=== PATIENT | female | born 1945 | race Caucasian/White ===

== ENCOUNTER 2021-02-01 09:52 | Inpatient (IN) ==
[2021-02-01] MEDS ORDERED: Ondansetron 4 MG/2 ML VIAL IVP ONE (09:57)
[2021-02-01] MEDS ORDERED: Ipratropium/Albuterol Neb 3 ML IH ONE (09:57)
[2021-02-01] MEDS ORDERED: Acetaminophen 325 MG TABLET PO ONE (09:57)
[2021-02-01] MEDS ORDERED: 0.9 % Sodium Chloride 1,000 ML ONE (10:02)
[2021-02-01] MEDS ORDERED: 0.9 % Sodium Chloride 1,000 ML IVC ONE (10:04)
[2021-02-01] MEDS ORDERED: Acetaminophen 650 MG RECTAL SUPP RC ONE (10:14)
[2021-02-01 10:18] LABS: ABG Base Excess -2 mEq/L (-2 to 3); ABG Chloride 122 mEq/L (98-107); ABG Glucose 146 mg/dL (60-95); ABG HCO3 23 mEq/L (21-27); ABG Ionized Calcium 1.13 mmol/L (1.15-1.35); ABG Oxygen Saturation 95 % (95-98); ABG PCO2 42 mmHg (35-45); ABG PH 7.35 pH Units (7.32-7.45); ABG PO2 77 mmHg (85-104); ABG TCO2 25 mEq/L (20-26); Blood Gas Modality NIV
[2021-02-01 10:22] LABS: Hematocrit 45.2 % (35.3-44.9); Hemoglobin 14.1 g/dL (11.5-15.4); Mean Corpuscular HGB Conc 31.2 g/dL (31.6-35.5); Mean Corpuscular Hemoglobin 29.6 pg (28.0-33.3); Mean Corpuscular Volume 94.8 fL (83.0-100.0); Mean Platelet Volume 10.4 fL (9.4-12.4); Platelet Count 295 K/mcL (140-400); Red Blood Count 4.77 M/mcL (3.82-4.97); Red Cell Distribution Width 13.3 % (11.5-14.5); White Blood Count 18.3 K/mcL (4.3-11.1)
[2021-02-01 10:33] LABS: INR 1.2; Prothrombin Time 13.4 Seconds (9.4-12.1)
[2021-02-01 10:35] LABS: Activated Partial Thrombo Time 31.4 Seconds (26.0-36.0)
[2021-02-01 10:41] LABS: Fibrinogen > 1000 mg/dL (169-393)
[2021-02-01] MEDS ORDERED: *HR* LORazepam 2 MG/ML VIAL IVP ONE (10:59)
[2021-02-01] MEDS ORDERED: Azithromycin 500 MG in 0.9 % Sodium Chloride 250 ML IVPB ONE (11:00)
[2021-02-01] MEDS ORDERED: cefTRIAXone 1,000 MG in 0.9 % Sodium Chloride Mini Bag 100 ML IVPB ONE (11:00)
[2021-02-01 11:01] LABS: Alanine Aminotransferase 18 Units/L (7-52); Albumin 3.4 g/dL (3.5-5.7); Albumin/Globulin Ratio 0.8 (1.1-2.2); Alkaline Phosphatase 117 Units/L (34-104); Aspartate Amino Transferase 24 Units/L (13-39); BUN/Creatinine Ratio 17 (6-26); Bilirubin,Direct 0.1 mg/dL (0.0-0.2); Bilirubin,Indirect 0.3 mg/dL (0.0-1.0); Bilirubin,Total 0.4 mg/dL (0.3-1.0); Blood Urea Nitrogen 81 mg/dL (8-23); Calcium 9.1 mg/dL (8.6-10.3); Carbon Dioxide 25 mEq/L (23-29); Chloride 114 mEq/L (98-107); Globulin 4.2 g/dL (2.4-3.5); Glucose 136 mg/dL (70-105); Lactate Dehydrogenase 252 Units/L (140-271); Magnesium 2.6 mg/dL (1.6-2.6); Osmolality,Calculated 342 (280-300); Phosphorous 4.7 mg/dL (2.7-4.5); Potassium 3.8 mEq/L (3.5-5.1); Sodium 153 mEq/L (136-145); Total Protein 7.6 g/dL (6.4-8.9); Troponin I 0.22 ng/mL (< 0.04); eGFR For African Americans 11 (> 60); eGFR For Non-African Americans 9 (> 60)
[2021-02-01] MEDS ORDERED: *HR* Heparin 5,000 UNIT/ML VIAL IVP PRN ×2 (11:09)
[2021-02-01] MEDS ORDERED: *HR* Heparin 5,000 UNIT/ML VIAL IVP ONE (11:09)
[2021-02-01 11:12] LABS: Lymphocytes # 2.2 K/mcL (0.6-4.6); Monocytes # 0.6 K/mcL (0.0-1.3); Neutrophils # 15.4 K/mcL (1.6-8.9); Reactive Lymphocytes Present (Not Present)
[2021-02-01 11:13] LABS: Platelet Estimate Normal (Normal)
[2021-02-01] MEDS ORDERED: Heparin 25,000UNIT/250ML 1/2NS 25,000 UNIT/250 ML IV.SOLN IVC SCH (11:15)
[2021-02-01 11:40] LABS: Ferritin 281 ng/mL (10-120)
[2021-02-01 11:45] LABS: C-Reactive Protein > 300 mg/L (Less than 10)
[2021-02-01] MEDS ORDERED: Naloxone 0.4 MG/ML INJ IVP PRN (12:25)
[2021-02-01] MEDS ORDERED: Perflutren Lipid Microsphere 1.3 ML in 0.9 % Sodium Chloride 8.7 ML IVP PRN (12:47)
[2021-02-01 12:51] LABS: Hematocrit 38.1 % (35.3-44.9); Mean Corpuscular HGB Conc 29.9 g/dL (31.6-35.5); Mean Corpuscular Hemoglobin 29.3 pg (28.0-33.3); Mean Corpuscular Volume 97.9 fL (83.0-100.0); Mean Platelet Volume 11.2 fL (9.4-12.4); Platelet Count 161 K/mcL (140-400); Red Blood Count 3.89 M/mcL (3.82-4.97); Red Cell Distribution Width 13.5 % (11.5-14.5); White Blood Count 14.4 K/mcL (4.3-11.1)
[2021-02-01 12:55] LABS: Hemoglobin 11.4 g/dL (11.5-15.4)
[2021-02-01 13:01] LABS: Heparin anti-factor XA UFH < 0.04 IU/mL (0.30-0.70)
[2021-02-01 13:02] LABS: INR 1.2; Prothrombin Time 13.6 Seconds (9.4-12.1)
[2021-02-01] MEDS ORDERED: Piperacillin/Tazobactam 3.375 GM in 0.9 % Sodium Chloride Mini Bag 100 ML IVPB SCH (16:00)
[2021-02-01] MEDS: Ipratropium 1 PUFF INHALER IH SCH ×2 (16:25→20:04)
[2021-02-01] MEDS: *HR* LORazepam 2 MG/ML VIAL IVP PRN (17:00)
[2021-02-01] MEDS ORDERED: Potassium Chloride 20 MEQ in D5% in Water 1,000 ML IVC SCH (17:15)
[2021-02-01] MEDS: Dexmedetomidine HCl 400 MCG/100 ML MLS IVC SCH (17:36)
[2021-02-01] MEDS ORDERED: D5% in Water 1,000 ML IVC SCH (17:45)
[2021-02-01] MEDS ORDERED: Vancomycin 1,500 MG/265 ML IV.SOLN IVPB SCH (19:00)
[2021-02-01] MEDS ORDERED: Vancomycin (wt based) 1,000 MG VIAL IV ONE (19:02)
[2021-02-01] MEDS ORDERED: Vancomycin 1 EACH in 0.9 % Sodium Chloride 250 ML IVPB SCH (20:00)
[2021-02-01] MEDS: Divalproex Sodium 125 MG Sprinkle Capsule (DR) PO SCH (20:03)
[2021-02-01] MEDS: D5% in Water 1,000 ML IVC SCH (20:17)
[2021-02-02] MEDS: Ipratropium 1 PUFF INHALER IH SCH ×7 (00:05→23:48)
[2021-02-02 00:53] LABS: Basophils % 0.2 %; Hematocrit 36.6 % (35.3-44.9); Hemoglobin 11.3 g/dL (11.5-15.4); Immature Granulocytes % 0.3 % (0-4); Lymphocytes # 0.8 K/mcL (0.6-4.6); Lymphocytes % 5.1 %; Mean Corpuscular HGB Conc 30.9 g/dL (31.6-35.5); Mean Corpuscular Hemoglobin 29.7 pg (28.0-33.3); Mean Corpuscular Volume 96.3 fL (83.0-100.0); Mean Platelet Volume 10.4 fL (9.4-12.4); Monocytes # 0.7 K/mcL (0.0-1.3); Monocytes % 4.6 %; Platelet Count 230 K/mcL (140-400); Red Cell Distribution Width 13.4 % (11.5-14.5); Segmented Neutrophils % 89.8 %; White Blood Count 15.6 K/mcL (4.3-11.1)
[2021-02-02 01:09] LABS: Albumin 2.8 g/dL (3.5-5.7); Albumin/Globulin Ratio 0.8 (1.1-2.2); Bilirubin,Total 0.3 mg/dL (0.3-1.0); Calcium 7.8 mg/dL (8.6-10.3); Globulin 3.7 g/dL (2.4-3.5); Potassium 3.5 mEq/L (3.5-5.1); Total Protein 6.5 g/dL (6.4-8.9)
[2021-02-02 02:34] LABS: Platelet Estimate Normal (Normal)
[2021-02-02 04:45] LABS: Calcium 7.8 mg/dL (8.6-10.3); Potassium 3.5 mEq/L (3.5-5.1)
[2021-02-02] MEDS: Piperacillin/Tazobactam 3.375 GM in 0.9 % Sodium Chloride Mini Bag 100 ML IVPB SCH ×2 (05:18→17:17)
[2021-02-02] MEDS ORDERED: Vancomycin 500 MG in 0.9 % Sodium Chloride Mini Bag 100 ML IVPB ONE (08:00)
[2021-02-02 08:01] LABS: Acinetobacter baumannii by PCR Not Detected (Not Detect); Candida albicans by PCR Not Detected (Not Detect); Candida glabrata by PCR Not Detected (Not Detect); Candida krusei by PCR Not Detected (Not Detect); Candida parapsilosis by PCR Not Detected (Not Detect); Candida tropicalis by PCR Not Detected (Not Detect); Enterobacter cloacae Cmplx PCR Not Detected (Not Detect); Enterococcus by PCR Not Detected (Not Detect); Escherichia coli by PCR Not Detected (Not Detect); Klebsiella oxytoca by PCR Not Detected (Not Detect); Klebsiella pneumoniae by PCR Not Detected (Not Detect); Proteus by PCR DETECTED (Not Detect); Pseudomonas aeruginosa by PCR Not Detected (Not Detect); Serratia marcescens by PCR Not Detected (Not Detect); Staphylococcus aureus by PCR Not Detected (Not Detect); Staphylococcus by PCR Not Detected (Not Detect); Streptococcus agalactiae(B)PCR Not Detected (Not Detect); Streptococcus by PCR Not Detected (Not Detect); Streptococcus pneumoniae PCR Not Detected (Not Detect); Streptococcus pyogenes (A) PCR Not Detected (Not Detect)
[2021-02-02] MEDS: Divalproex Sodium 125 MG Sprinkle Capsule (DR) PO SCH (08:25)
[2021-02-02] MEDS: Aspirin 81 MG TAB.CHEW PO SCH (08:25)
[2021-02-02 08:38] LABS: Troponin I 0.05 ng/mL (< 0.04)
[2021-02-02] MEDS: Dexmedetomidine HCl 400 MCG/100 ML MLS IVC SCH ×2 (09:21→19:38)
[2021-02-02] MEDS: Valproic Acid INJ 125 MG in 0.9 % Sodium Chloride 100 ML IVPB SCH ×2 (09:32→20:04)
[2021-02-02] MEDS: *HR* LORazepam 2 MG/ML VIAL IVP PRN ×2 (09:33→21:36)
[2021-02-02] MEDS: D5% in Water 1,000 ML IVC SCH ×2 (09:53→22:37)
[2021-02-02 10:49] LABS: Bacteria,Urine Few per hpf (None-Few); Bilirubin,Urine Negative (Negative); Blood,Urine Large (Negative); Clarity,Urine Turbid (Clear); Color,Urine Light-Orange (Yellow); Glucose,Urine (UA) Normal (Normal); Ketones,Urine Negative (Negative); Leukocyte Esterase,Urine Large (Negative); Nitrite,Urine Negative (Negative); PH,Urine 6.5 pH Units (5.0-8.0); Protein,Urine 70 mg/dL (Neg-Trace); RBC,Urine TNTC per hpf (0-3); Renal Epithelial Cells,Urine Few per hpf (None-Few); Squamous Epithelial Cell,Urine Few per hpf (None-Few); Transitional Epi Cells,Urine Few per hpf (None-Few); Urobilinogen,Urine Normal (Normal); WBC,Urine TNTC per hpf (0-3)
[2021-02-02] MEDS ORDERED: cefTRIAXone 1,000 MG in Water for inj. (sterile) 10 ML IVP SCH (11:00)
[2021-02-02] MEDS ORDERED: Lidocaine -MPF 1% 5 ML AMPUL INFILT ONE (11:41)
[2021-02-02] MEDS: Azithromycin 500 MG in D5% in Water 250 ML IVPB SCH (12:00)
[2021-02-02 12:32] LABS: Basophils % 0.2 %; Hematocrit 35.2 % (35.3-44.9); Hemoglobin 11.1 g/dL (11.5-15.4); Immature Granulocytes % 0.6 % (0-4); Lymphocytes # 0.8 K/mcL (0.6-4.6); Lymphocytes % 4.9 %; Mean Corpuscular HGB Conc 31.5 g/dL (31.6-35.5); Mean Corpuscular Hemoglobin 30.2 pg (28.0-33.3); Mean Corpuscular Volume 95.7 fL (83.0-100.0); Mean Platelet Volume 10.5 fL (9.4-12.4); Monocytes # 0.6 K/mcL (0.0-1.3); Monocytes % 3.3 %; Neutrophils # 15.2 K/mcL (1.6-8.9); Platelet Count 223 K/mcL (140-400); Red Blood Count 3.68 M/mcL (3.82-4.97); Red Cell Distribution Width 13.3 % (11.5-14.5); White Blood Count 16.7 K/mcL (4.3-11.1)
[2021-02-02 12:55] LABS: Calcium 7.7 mg/dL (8.6-10.3); Potassium 3.6 mEq/L (3.5-5.1)
[2021-02-02] MEDS ORDERED: Potassium Chloride 40 MEQ, Lidocaine 1% 2 ML in 0.9 % Sodium Chloride 500 ML IVPB ONE (13:14)
[2021-02-02 14:04] LABS: Platelet Estimate Normal (Normal)
[2021-02-02 14:20] LABS: Adenovirus Not Detected (Not Detect); Bordetella Pertussis Not Detected (Not Detect); Chlamydophila pneumoniae Not Detected (Not Detect); Coronavirus 229E Not Detected (Not Detect); Coronavirus HKU1 Not Detected (Not Detect); Coronavirus NL63 Not Detected (Not Detect); Coronavirus OC43 Not Detected (Not Detect); Human Metapneumovirus Not Detected (Not Detect); Human Rhinovirus/Enterovirus Not Detected (Not Detect); Influenza A Subtype 2009 H1 Not Detected (Not Detect); Influenza B Not Detected (Not Detect); Mycoplasma pneumoniae Not Detected (Not Detect); Parainfluenza Virus 1 Not Detected (Not Detect); Parainfluenza Virus 2 Not Detected (Not Detect); Parainfluenza Virus 3 Not Detected (Not Detect); Parainfluenza Virus 4 Not Detected (Not Detect); Respiratory Syncytial Virus Not Detected (Not Detect)
[2021-02-02 14:24] LABS: SARS-CoV-2 DETECTED (Not Detect)
[2021-02-02] MEDS: Calcium Gluconate 1gm/50mL 1 GM/50 ML BAG IVPB SCH ×2 (15:45→16:23)
[2021-02-03] MEDS: *HR* LORazepam 2 MG/ML VIAL IVP PRN ×3 (03:42→11:58)
[2021-02-03] MEDS: Ipratropium 1 PUFF INHALER IH SCH ×6 (03:50→23:39)
[2021-02-03] MEDS: Piperacillin/Tazobactam 3.375 GM in 0.9 % Sodium Chloride Mini Bag 100 ML IVPB SCH ×2 (05:18→16:55)
[2021-02-03 06:01] LABS: Basophils % 0.1 %; Hematocrit 34.3 % (35.3-44.9); Hemoglobin 10.8 g/dL (11.5-15.4); Immature Granulocytes % 0.8 % (0-4); Lymphocytes # 1.1 K/mcL (0.6-4.6); Lymphocytes % 5.8 %; Mean Corpuscular HGB Conc 31.5 g/dL (31.6-35.5); Mean Corpuscular Hemoglobin 29.5 pg (28.0-33.3); Mean Corpuscular Volume 93.7 fL (83.0-100.0); Mean Platelet Volume 10.6 fL (9.4-12.4); Monocytes # 1.1 K/mcL (0.0-1.3); Monocytes % 5.9 %; Neutrophils # 16.1 K/mcL (1.6-8.9); Platelet Count 236 K/mcL (140-400); Red Blood Count 3.66 M/mcL (3.82-4.97); Red Cell Distribution Width 13.4 % (11.5-14.5); Segmented Neutrophils % 87.4 %; White Blood Count 18.4 K/mcL (4.3-11.1)
[2021-02-03 06:18] LABS: Albumin 2.6 g/dL (3.5-5.7); Albumin/Globulin Ratio 0.8 (1.1-2.2); Bilirubin,Total 0.3 mg/dL (0.3-1.0); Globulin 3.3 g/dL (2.4-3.5); Potassium 4.2 mEq/L (3.5-5.1); Total Protein 5.9 g/dL (6.4-8.9)
[2021-02-03 06:46] LABS: Anisocytosis 1+ (Not Present); Platelet Estimate Normal (Normal)
[2021-02-03] MEDS: Aspirin 81 MG TAB.CHEW PO SCH (07:54)
[2021-02-03] MEDS: Valproic Acid INJ 125 MG in 0.9 % Sodium Chloride 100 ML IVPB SCH ×2 (10:00→21:24)
[2021-02-03] MEDS: QUEtiapine Fumarate 25 MG TABLET PO SCH ×2 (10:05→21:19)
[2021-02-03] MEDS: Azithromycin 500 MG in D5% in Water 250 ML IVPB SCH (10:21)
[2021-02-03] MEDS ORDERED: D10% in Water 500 ML IVC PRN (11:26)
[2021-02-03] MEDS: D5% in Water 1,000 ML IVC SCH (11:46)
[2021-02-03 13:34] LABS: Magnesium 1.9 mg/dL (1.6-2.6); Phosphorous 2.2 mg/dL (2.7-4.5)
[2021-02-03] MEDS ORDERED: Haloperidol Lactate 5 MG/ML VIAL IVP ONE (14:15)
[2021-02-03] MEDS ORDERED: D5% in Water 1,000 ML IVC PRN (14:27)
[2021-02-03] MEDS ORDERED: Dextrose Gel 15 GM/37.5 ML TUBE PO PRN ×2 (14:27)
[2021-02-03] MEDS ORDERED: *HR* Dextrose 50 % in Water (Syg) 50 ML SYRINGE IVP PRN (14:27)
[2021-02-03] MEDS: Dexmedetomidine HCl 400 MCG/100 ML MLS IVC SCH (14:35)
[2021-02-03] MEDS: Insulin LISPRO 300 UNITS/3 ML VIAL SUBQ SCH ×2 (14:58→18:59)
[2021-02-03] MEDS ORDERED: Clinimix E 5%-15% SOLUTION 2,000 ML with MVI, adult with vitamin K 10 ML IVC SCH (17:00)
[2021-02-03] MEDS: *HR* Heparin 5,000 UNIT/ML VIAL SQ SCH (17:07)
[2021-02-04] MEDS: Insulin LISPRO 300 UNITS/3 ML VIAL SUBQ SCH ×6 (01:48→20:00)
[2021-02-04] MEDS: Ipratropium 1 PUFF INHALER IH SCH ×5 (03:13→20:33)
[2021-02-04] MEDS: Piperacillin/Tazobactam 3.375 GM in 0.9 % Sodium Chloride Mini Bag 100 ML IVPB SCH (04:57)
[2021-02-04] MEDS: *HR* Heparin 5,000 UNIT/ML VIAL SQ SCH ×2 (04:57→17:05)
[2021-02-04] MEDS: Dexmedetomidine HCl 400 MCG/100 ML MLS IVC SCH ×3 (05:12→23:25)
[2021-02-04 09:05] LABS: Basophils % 0.1 %; Eosinophils % 0.1 %; Hematocrit 34.3 % (35.3-44.9); Hemoglobin 11.1 g/dL (11.5-15.4); Immature Granulocytes % 0.8 % (0-4); Lymphocytes % 7.3 %; Mean Corpuscular HGB Conc 32.4 g/dL (31.6-35.5); Mean Corpuscular Volume 92.7 fL (83.0-100.0); Mean Platelet Volume 10.8 fL (9.4-12.4); Monocytes # 0.8 K/mcL (0.0-1.3); Monocytes % 6.2 %; Neutrophils # 11.5 K/mcL (1.6-8.9); Platelet Count 218 K/mcL (140-400); Red Cell Distribution Width 13.1 % (11.5-14.5); Segmented Neutrophils % 85.5 %; White Blood Count 13.5 K/mcL (4.3-11.1)
[2021-02-04 09:47] LABS: Calcium 8.2 mg/dL (8.6-10.3); Magnesium 1.8 mg/dL (1.6-2.6); Phosphorous 2.2 mg/dL (2.7-4.5); Potassium 3.8 mEq/L (3.5-5.1)
[2021-02-04] MEDS: Aspirin 81 MG TAB.CHEW PO SCH (09:49)
[2021-02-04] MEDS: QUEtiapine Fumarate 25 MG TABLET PO SCH ×2 (09:49→19:55)
[2021-02-04] MEDS: Valproic Acid INJ 125 MG in 0.9 % Sodium Chloride 100 ML IVPB SCH ×2 (10:20→21:53)
[2021-02-04] MEDS: Azithromycin 500 MG in D5% in Water 250 ML IVPB SCH (11:46)
[2021-02-04] MEDS: cefTRIAXone 2,000 MG in Water for inj. (sterile) 20 ML IVP SCH (13:43)
[2021-02-04] MEDS: hydrOXYzine pamoate 25 MG CAPSULE PO SCH ×2 (15:17→19:37)
[2021-02-04] MEDS ORDERED: Clinimix E 5%-15% SOLUTION 2,000 ML with MVI, adult with vitamin K 10 ML IVC SCH (17:00)
[2021-02-04] MEDS: traZODone 50 MG TABLET PO SCH (19:55)
[2021-02-04] MEDS: Latanoprost 2.5 ML BOTTLE BOTH EYES SCH (20:14)
[2021-02-05] MEDS: Ipratropium 1 PUFF INHALER IH SCH ×7 (00:02→23:11)
[2021-02-05] MEDS: Insulin LISPRO 300 UNITS/3 ML VIAL SUBQ SCH ×7 (00:12→23:28)
[2021-02-05] MEDS: *HR* LORazepam 2 MG/ML VIAL IVP PRN ×2 (03:23→13:06)
[2021-02-05] MEDS: *HR* Heparin 5,000 UNIT/ML VIAL SQ SCH ×2 (05:18→17:22)
[2021-02-05 06:11] LABS: Basophils % 0.2 %; Eosinophils % 0.2 %; Hematocrit 35.5 % (35.3-44.9); Hemoglobin 11.2 g/dL (11.5-15.4); Lymphocytes # 1.1 K/mcL (0.6-4.6); Lymphocytes % 8.8 %; Mean Corpuscular HGB Conc 31.5 g/dL (31.6-35.5); Mean Corpuscular Hemoglobin 28.8 pg (28.0-33.3); Mean Corpuscular Volume 91.3 fL (83.0-100.0); Mean Platelet Volume 10.8 fL (9.4-12.4); Monocytes # 0.9 K/mcL (0.0-1.3); Monocytes % 6.7 %; Neutrophils # 10.7 K/mcL (1.6-8.9); Platelet Count 227 K/mcL (140-400); Red Blood Count 3.89 M/mcL (3.82-4.97); Segmented Neutrophils % 83.1 %; White Blood Count 12.9 K/mcL (4.3-11.1)
[2021-02-05 06:40] LABS: Calcium 8.3 mg/dL (8.6-10.3); Magnesium 2.2 mg/dL (1.6-2.6); Phosphorous 2.7 mg/dL (2.7-4.5); Potassium 3.5 mEq/L (3.5-5.1)
[2021-02-05] MEDS: Aspirin 81 MG TAB.CHEW PO SCH (08:21)
[2021-02-05] MEDS: hydrOXYzine pamoate 25 MG CAPSULE PO SCH ×3 (08:23→20:04)
[2021-02-05] MEDS: Mirtazapine 15 MG TABLET PO SCH (08:24)
[2021-02-05] MEDS: Dexmedetomidine HCl 400 MCG/100 ML MLS IVC SCH ×2 (09:20→19:54)
[2021-02-05] MEDS: Valproic Acid INJ 125 MG in 0.9 % Sodium Chloride 100 ML IVPB SCH ×2 (10:20→21:43)
[2021-02-05] MEDS: QUEtiapine Fumarate 25 MG TABLET PO SCH ×2 (10:25→20:04)
[2021-02-05] MEDS: cefTRIAXone 2,000 MG in Water for inj. (sterile) 20 ML IVP SCH (13:06)
[2021-02-05] MEDS: Azithromycin 500 MG in D5% in Water 250 ML IVPB SCH (14:56)
[2021-02-05] MEDS ORDERED: Clinimix E 5%-15% SOLUTION 2,000 ML with MVI, adult with vitamin K 10 ML IVC SCH (17:00)
[2021-02-05] MEDS: traZODone 50 MG TABLET PO SCH (20:04)
[2021-02-05] MEDS: Latanoprost 2.5 ML BOTTLE BOTH EYES SCH (20:05)
[2021-02-05] MEDS: Ondansetron 4 MG/2 ML VIAL IVP PRN (23:30)
[2021-02-06] MEDS: Ipratropium 1 PUFF INHALER IH SCH ×6 (03:47→23:45)
[2021-02-06] MEDS: *HR* Heparin 5,000 UNIT/ML VIAL SQ SCH ×2 (05:06→21:53)
[2021-02-06] MEDS: Insulin LISPRO 300 UNITS/3 ML VIAL SUBQ SCH ×5 (05:07→22:01)
[2021-02-06 05:24] LABS: Basophils % 0.2 %; Eosinophils # 0.2 K/mcL (0.0-0.6); Eosinophils % 1.1 %; Hematocrit 34.4 % (35.3-44.9); Hemoglobin 10.8 g/dL (11.5-15.4); Immature Granulocytes % 1.2 % (0-4); Lymphocytes # 1.6 K/mcL (0.6-4.6); Lymphocytes % 11.3 %; Mean Corpuscular HGB Conc 31.4 g/dL (31.6-35.5); Mean Corpuscular Volume 92.5 fL (83.0-100.0); Mean Platelet Volume 10.4 fL (9.4-12.4); Monocytes # 1.1 K/mcL (0.0-1.3); Monocytes % 7.5 %; Platelet Count 248 K/mcL (140-400); Red Blood Count 3.72 M/mcL (3.82-4.97); Segmented Neutrophils % 78.7 %
[2021-02-06 05:43] LABS: Albumin 2.7 g/dL (3.5-5.7); Albumin/Globulin Ratio 0.8 (1.1-2.2); Bilirubin,Total 0.3 mg/dL (0.3-1.0); Calcium 8.5 mg/dL (8.6-10.3); Globulin 3.5 g/dL (2.4-3.5); Magnesium 1.9 mg/dL (1.6-2.6); Potassium 3.5 mEq/L (3.5-5.1); Total Protein 6.2 g/dL (6.4-8.9)
[2021-02-06] MEDS: hydrOXYzine pamoate 25 MG CAPSULE PO SCH ×3 (08:48→21:52)
[2021-02-06] MEDS: Aspirin 81 MG TAB.CHEW PO SCH (08:48)
[2021-02-06] MEDS: QUEtiapine Fumarate 25 MG TABLET PO SCH ×2 (08:48→21:52)
[2021-02-06] MEDS: Mirtazapine 15 MG TABLET PO SCH (08:48)
[2021-02-06] MEDS: Dexmedetomidine HCl 400 MCG/100 ML MLS IVC SCH ×2 (08:48→22:00)
[2021-02-06] MEDS ORDERED: D10% in Water 500 ML IVC PRN (11:40)
[2021-02-06] MEDS: Valproic Acid INJ 125 MG in 0.9 % Sodium Chloride 100 ML IVPB SCH ×2 (12:27→21:53)
[2021-02-06] MEDS: Azithromycin 500 MG in D5% in Water 250 ML IVPB SCH (14:35)
[2021-02-06] MEDS: cefTRIAXone 2,000 MG in Water for inj. (sterile) 20 ML IVP SCH (14:35)
[2021-02-06] MEDS ORDERED: Clinimix E 5%-15% SOLUTION 2,000 ML with MVI, adult with vitamin K 10 ML IVC SCH (17:00)
[2021-02-06] MEDS: traZODone 50 MG TABLET PO SCH (21:52)
[2021-02-06] MEDS: Latanoprost 2.5 ML BOTTLE BOTH EYES SCH (22:01)
[2021-02-07] MEDS: Insulin LISPRO 300 UNITS/3 ML VIAL SUBQ SCH ×6 (00:55→21:28)
[2021-02-07] MEDS: Ipratropium 1 PUFF INHALER IH SCH ×5 (03:45→19:57)
[2021-02-07] MEDS: *HR* Heparin 5,000 UNIT/ML VIAL SQ SCH ×2 (04:51→18:20)
[2021-02-07 05:52] LABS: Basophils % 0.2 %; Eosinophils # 0.3 K/mcL (0.0-0.6); Hematocrit 31.5 % (35.3-44.9); Hemoglobin 10.3 g/dL (11.5-15.4); Immature Granulocytes % 1.8 % (0-4); Lymphocytes # 1.9 K/mcL (0.6-4.6); Lymphocytes % 11.2 %; Mean Corpuscular HGB Conc 32.7 g/dL (31.6-35.5); Mean Corpuscular Hemoglobin 30.4 pg (28.0-33.3); Mean Corpuscular Volume 92.9 fL (83.0-100.0); Mean Platelet Volume 10.8 fL (9.4-12.4); Monocytes # 1.3 K/mcL (0.0-1.3); Monocytes % 7.7 %; Neutrophils # 12.8 K/mcL (1.6-8.9); Platelet Count 323 K/mcL (140-400); Red Blood Count 3.39 M/mcL (3.82-4.97); Red Cell Distribution Width 12.7 % (11.5-14.5); Segmented Neutrophils % 77.1 %; White Blood Count 16.7 K/mcL (4.3-11.1)
[2021-02-07 06:47] LABS: Calcium 8.5 mg/dL (8.6-10.3); Phosphorous 2.9 mg/dL (2.7-4.5); Potassium 3.6 mEq/L (3.5-5.1)
[2021-02-07] MEDS ORDERED: D10% in Water 500 ML IVC PRN (09:24)
[2021-02-07] MEDS: Aspirin 81 MG TAB.CHEW PO SCH (09:32)
[2021-02-07] MEDS: Mirtazapine 15 MG TABLET PO SCH (09:32)
[2021-02-07] MEDS: QUEtiapine Fumarate 25 MG TABLET PO SCH ×2 (09:32→21:29)
[2021-02-07] MEDS: hydrOXYzine pamoate 25 MG CAPSULE PO SCH ×3 (09:33→21:29)
[2021-02-07] MEDS ORDERED: Dexmedetomidine HCl 400 MCG/100 ML MLS IVC ONE (12:35)
[2021-02-07] MEDS: Valproic Acid INJ 125 MG in 0.9 % Sodium Chloride 100 ML IVPB SCH ×2 (12:41→21:29)
[2021-02-07] MEDS: *HR* LORazepam 2 MG/ML VIAL IVP PRN ×2 (12:43→21:58)
[2021-02-07] MEDS: cefTRIAXone 2,000 MG in Water for inj. (sterile) 20 ML IVP SCH (12:43)
[2021-02-07] MEDS ORDERED: Clinimix E 5%-15% SOLUTION 2,000 ML with MVI, adult with vitamin K 10 ML IVC SCH (17:00)
[2021-02-07] MEDS: traZODone 50 MG TABLET PO SCH (21:28)
[2021-02-07] MEDS: Latanoprost 2.5 ML BOTTLE BOTH EYES SCH (21:30)
[2021-02-07] MEDS: Ondansetron 4 MG/2 ML VIAL IVP PRN (21:58)
[2021-02-08] MEDS: Ipratropium 1 PUFF INHALER IH SCH ×6 (00:05→20:28)
[2021-02-08] MEDS: Insulin LISPRO 300 UNITS/3 ML VIAL SUBQ SCH ×6 (00:35→20:43)
[2021-02-08] MEDS: *HR* Heparin 5,000 UNIT/ML VIAL SQ SCH ×2 (06:21→17:20)
[2021-02-08] MEDS: *HR* LORazepam 2 MG/ML VIAL IVP PRN (06:21)
[2021-02-08 07:00] LABS: Basophils % 0.2 %; Eosinophils # 0.4 K/mcL (0.0-0.6); Eosinophils % 1.6 %; Hemoglobin 10.7 g/dL (11.5-15.4); Immature Granulocytes % 2.3 % (0-4); Lymphocytes # 2.3 K/mcL (0.6-4.6); Lymphocytes % 10.3 %; Mean Corpuscular HGB Conc 32.4 g/dL (31.6-35.5); Mean Corpuscular Hemoglobin 29.8 pg (28.0-33.3); Mean Corpuscular Volume 91.9 fL (83.0-100.0); Mean Platelet Volume 10.6 fL (9.4-12.4); Monocytes # 1.9 K/mcL (0.0-1.3); Monocytes % 8.3 %; Neutrophils # 17.1 K/mcL (1.6-8.9); Platelet Count 437 K/mcL (140-400); Red Blood Count 3.59 M/mcL (3.82-4.97); Red Cell Distribution Width 12.5 % (11.5-14.5); Segmented Neutrophils % 77.3 %; White Blood Count 22.2 K/mcL (4.3-11.1)
[2021-02-08 07:14] LABS: Calcium 8.8 mg/dL (8.6-10.3); Magnesium 2.1 mg/dL (1.6-2.6); Phosphorous 3.9 mg/dL (2.7-4.5); Potassium 4.1 mEq/L (3.5-5.1)
[2021-02-08] MEDS: Aspirin 81 MG TAB.CHEW PO SCH (09:20)
[2021-02-08] MEDS: QUEtiapine Fumarate 25 MG TABLET PO SCH ×2 (09:20→20:40)
[2021-02-08] MEDS: hydrOXYzine pamoate 25 MG CAPSULE PO SCH ×3 (09:20→20:40)
[2021-02-08] MEDS: Mirtazapine 15 MG TABLET PO SCH (09:21)
[2021-02-08] MEDS: Valproic Acid INJ 125 MG in 0.9 % Sodium Chloride 100 ML IVPB SCH ×2 (09:22→21:36)
[2021-02-08] MEDS ORDERED: D10% in Water 500 ML IVC PRN (09:59)
[2021-02-08] MEDS: cefTRIAXone 2,000 MG in Water for inj. (sterile) 20 ML IVP SCH (13:41)
[2021-02-08] MEDS ORDERED: Clinimix E 5%-15% SOLUTION 2,000 ML with MVI, adult with vitamin K 10 ML IVC SCH (17:00)
[2021-02-08] MEDS: traZODone 50 MG TABLET PO SCH (20:39)
[2021-02-08] MEDS: Latanoprost 2.5 ML BOTTLE BOTH EYES SCH (20:44)
[2021-02-09] MEDS: Ipratropium 1 PUFF INHALER IH SCH ×5 (00:12→15:36)
[2021-02-09] MEDS: Insulin LISPRO 300 UNITS/3 ML VIAL SUBQ SCH ×4 (00:26→11:55)
[2021-02-09 03:52] LABS: Basophils # 0.1 K/mcL (0.0-0.2); Basophils % 0.3 %; Eosinophils # 0.4 K/mcL (0.0-0.6); Eosinophils % 1.7 %; Hematocrit 33.3 % (35.3-44.9); Hemoglobin 10.3 g/dL (11.5-15.4); Immature Granulocytes % 2.3 % (0-4); Lymphocytes % 12.4 %; Mean Corpuscular HGB Conc 30.9 g/dL (31.6-35.5); Mean Corpuscular Hemoglobin 28.9 pg (28.0-33.3); Mean Corpuscular Volume 93.5 fL (83.0-100.0); Mean Platelet Volume 11.1 fL (9.4-12.4); Monocytes # 1.9 K/mcL (0.0-1.3); Monocytes % 7.6 %; Neutrophils # 18.4 K/mcL (1.6-8.9); Platelet Count 454 K/mcL (140-400); Red Blood Count 3.56 M/mcL (3.82-4.97); Red Cell Distribution Width 12.7 % (11.5-14.5); Segmented Neutrophils % 75.7 %; White Blood Count 24.3 K/mcL (4.3-11.1)
[2021-02-09 04:19] LABS: Calcium 8.8 mg/dL (8.6-10.3); Phosphorous 4.1 mg/dL (2.7-4.5); Potassium 4.2 mEq/L (3.5-5.1)
[2021-02-09] MEDS: *HR* Heparin 5,000 UNIT/ML VIAL SQ SCH (05:49)
[2021-02-09] MEDS: Ondansetron 4 MG/2 ML VIAL IVP PRN (07:34)
[2021-02-09] MEDS: QUEtiapine Fumarate 25 MG TABLET PO SCH (08:29)
[2021-02-09] MEDS: Mirtazapine 15 MG TABLET PO SCH (08:30)
[2021-02-09] MEDS: Aspirin 81 MG TAB.CHEW PO SCH (08:30)
[2021-02-09] MEDS: hydrOXYzine pamoate 25 MG CAPSULE PO SCH ×2 (08:30→15:06)
[2021-02-09] MEDS: Valproic Acid INJ 125 MG in 0.9 % Sodium Chloride 100 ML IVPB SCH (08:31)
[2021-02-09 11:58] VITALS: BP 124/76; PULSE 100; TEMP 99
[2021-02-09] MEDS: cefTRIAXone 2,000 MG in Water for inj. (sterile) 20 ML IVP SCH (12:40)
[2021-02-09 17:15] VITALS: O2SAT 92
== END 2021-02-09 16:45 | DRG 871 ==
LOC: 2NNU 09:52 → EMEROOARM 09:52 → SUATTDRO 15:32 → 2NNU 16:20 → SUATTDRO 02-02 12:10 → 3NENU 02-03 21:58
PROVIDERS: ADMIT General Practice; ATTEND Internal Medicine